=== PATIENT | male | born 2000 | race Caucasian/White ===

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

== ENCOUNTER 2020-09-12 21:32 | Inpatient (IN) ==
[2020-09-12] MEDS ORDERED: NS 0.9% 1000 ml BAG 1,000 ML IV ONE (22:15)
[2020-09-12 22:30] LABS: Urine Appearance Cloudy; Urine Bilirubin Negative (Negative); Urine Blood 2+ (Negative); Urine Color Amber; Urine Glucose Negative (Negative); Urine Ketones 2+ (Negative); Urine Nitrite Negative (Negative); Urine Protein 1+(30 mg/dL) (Negative); Urine Specific Gravity 1.031 (1.010-1.030); Urine Urobilinogen Negative (Negative)
[2020-09-12 22:44] LABS: Urine Bacteria Absent (Absent); Urine Red Blood Cell Trace(0-2/hpf) (Absent); Urine White Blood Cell Absent (Absent)
[2020-09-12 22:45] LABS: ABS Lymphocytes 1.2 10^3/ul (1.0-4.8); ABS Monocytes 1.1 10^3/ul (0-0.8); ABS Neutrophils 9.6 10^3/ul (1.5-7.7); Eosinophil % 0.2 %; Hematocrit 43 % (42-52); Hemoglobin 14.7 g/dL (14.0-18.0); Lymphocyte % 10.1 %; Mean Corpuscular HGB Conc 34 g/dL (31-36); Mean Corpuscular Hemoglobin 30 pg (27-31); Mean Corpuscular Volume 88 fL (80-94); Mean Platelet Volume 7.5 fL (7.4-10.4); Platelet Count 301 10^3/uL (150-450); Red Blood Count 4.92 10^6 /uL (4.18-5.48); Red Cell Distribution Width 14 % (10-15)
[2020-09-12 23:01] LABS: Albumin 4.1 g/dL (3.2-5.2); BUN/Creatinine Ratio 13.8 (8-20); C Reactive Protein 199.06 mg/L (<8.01); Calcium 9.2 mg/dL (8.6-10.3); EGFR African American 122.6 (>60); EGFR Non-African American 101.3 (>60); Total Bilirubin 0.5 mg/dL (0.2-1.0); Total Protein 8.1 g/dL (6.4-8.9)
[2020-09-13] MEDS ORDERED: Iohexol 300 (CONTRAST) 10 ML SDV IV ONE (00:30)
[2020-09-13] MEDS ORDERED: Piperacillin/Tazobac ADVAN 3.375 GM in NS 0.9% 100 ml BAG 100 ML IV ONE (02:00)
[2020-09-13] MEDS ORDERED: Zosyn per Pharmacy NOTE FOLLOW UP SCH (03:00)
[2020-09-13] MEDS: NS 0.9% 1000 ml BAG 1,000 ML IV SCH ×2 (03:57→15:04)
[2020-09-13] MEDS: ZOSYN 3.375 GM Q8H per EXTENDED INFUSION IV SCH ×3 (06:38→23:15)
[2020-09-13] MEDS ORDERED: Piperacillin/Tazobac ADVAN 3.375 GM in NS 0.9% 100 ml BAG 100 ML IVPB ONE (08:30)
[2020-09-13] MEDS ORDERED: PEG 3000 GI LAVAGE 1 GALLON PO ONE (19:09)
[2020-09-14] MEDS: NS 0.9% 1000 ml BAG 1,000 ML IV SCH ×3 (02:46→23:46)
[2020-09-14 05:50] LABS: ABS Eosinophils 0.1 10^3/ul (0-0.6); ABS Lymphocytes 1.4 10^3/ul (1.0-4.8); ABS Monocytes 0.9 10^3/ul (0-0.8); Eosinophil % 1.2 %; Hematocrit 40 % (42-52); Hemoglobin 13.3 g/dL (14.0-18.0); Mean Corpuscular HGB Conc 33 g/dL (31-36); Mean Corpuscular Hemoglobin 30 pg (27-31); Mean Corpuscular Volume 89 fL (80-94); Mean Platelet Volume 7.6 fL (7.4-10.4); Platelet Count 278 10^3/uL (150-450); Red Blood Count 4.48 10^6 /uL (4.18-5.48); Red Cell Distribution Width 14 % (10-15); White Blood Count 8.4 10^3/uL (3.5-10.8)
[2020-09-14 05:59] LABS: Calcium 8.3 mg/dL (8.6-10.3); Potassium 3.8 mmol/L (3.5-5.0)
[2020-09-14 06:05] LABS: BUN/Creatinine Ratio 14.5 (8-20); EGFR African American 156.7 (>60); EGFR Non-African American 129.5 (>60)
[2020-09-14] MEDS: ZOSYN 3.375 GM Q8H per EXTENDED INFUSION IV SCH ×3 (06:21→22:27)
[2020-09-14] MEDS ORDERED: Influenza VAC *QUAD* 2020-21* 0.5 ML SYRINGE IM ONE (09:00)
[2020-09-14 10:22] LABS: C Reactive Protein 185.6 mg/L (<8.01)
[2020-09-14] MEDS ORDERED: fentaNYL 100 mcg/2 ml 50 MCG/ML VIAL ONE (16:28)
[2020-09-14] MEDS ORDERED: Midazolam 10 mg/10 ml VIAL 1 mg/ml 10 ml VIAL (10 mg) ONE (16:29)
[2020-09-15] MEDS: ZOSYN 3.375 GM Q8H per EXTENDED INFUSION IV SCH ×3 (06:25→22:24)
[2020-09-15 06:34] LABS: ABS Lymphocytes 1.5 10^3/ul (1.0-4.8); ABS Neutrophils 6.8 10^3/ul (1.5-7.7); Eosinophil % 0.3 %; Hematocrit 36 % (42-52); Hemoglobin 12.2 g/dL (14.0-18.0); Lymphocyte % 16.4 %; Mean Corpuscular HGB Conc 34 g/dL (31-36); Mean Corpuscular Hemoglobin 30 pg (27-31); Mean Corpuscular Volume 88 fL (80-94); Mean Platelet Volume 7.5 fL (7.4-10.4); Platelet Count 263 10^3/uL (150-450); Red Blood Count 4.08 10^6 /uL (4.18-5.48); Red Cell Distribution Width 14 % (10-15); White Blood Count 9.4 10^3/uL (3.5-10.8)
[2020-09-15 06:44] LABS: BUN/Creatinine Ratio 6.1 (8-20); EGFR African American 143.5 (>60); EGFR Non-African American 118.6 (>60); Potassium 3.7 mmol/L (3.5-5.0)
[2020-09-15] MEDS ORDERED: Influenza VAC *QUAD* 2020-21* 0.5 ML SYRINGE IM ONE (09:00)
[2020-09-15] MEDS: NS 0.9% 1000 ml BAG 1,000 ML IV SCH ×2 (09:15→17:32)
[2020-09-16] MEDS: NS 0.9% 1000 ml BAG 1,000 ML IV SCH (03:10)
[2020-09-16] MEDS: ZOSYN 3.375 GM Q8H per EXTENDED INFUSION IV SCH (06:20)
[2020-09-16 11:33] VITALS: BP 112/53
== END 2020-09-16 12:40 | disposition short-term general hospital (02) | DRG 245 ==
LOC: ED 21:32 → SSU 21:32
PROVIDERS: ADMIT Hospitalist; ATTEND Internal Medicine